=== PATIENT | female | born 1960 | race Caucasian/White ===

== ENCOUNTER 2022-12-14 08:58 | Inpatient (IN) | payer OTHER ==
[2022-12-14] MEDS ORDERED: Sodium Chloride 0.9% 10 ML Syringe FLUSH PRN (09:45)
[2022-12-14] MEDS ORDERED: fentaNYL 50 MCG/ML SDV IVPUSH ONE (09:46)
[2022-12-14] MEDS ORDERED: Ondansetron 4 MG/2 ML SDV IVPUSH ONE (09:46)
[2022-12-14 09:58] LABS: BASOPHILS ABSOLUTE AUTO 0.05 K/uL (0.00-0.10); BASOPHILS PERCENT AUTO 0.3 % (0.1-1.3); EOSINOPHILS ABSOLUTE AUTO 0.12 K/uL (0.00-0.40); EOSINOPHILS PERCENT AUTO 0.8 % (0.0-5.4); HEMATOCRIT 31.7 % (34.3-46.0); HEMOGLOBIN 10.5 g/dL (11.2-15.5); IMMATURE GRAN ABSOLUTE AUTO 0.09 K/uL (0.00-0.23); IMMATURE GRAN PERCENT AUTO 0.6 % (0.0-0.7); LYMPHOCYTES ABSOLUTE AUTO 1.47 K/uL (0.8-3.3); LYMPHOCYTES PERCENT AUTO 9.5 % (11.4-47.7); MEAN CORPUSCULAR HEMOGLOBIN 28.3 pg (31.6-35.5); MEAN CORPUSCULAR HGB CONC 33.1 g/dL (31.6-35.5); MEAN CORPUSCULAR VOLUME 85.4 fL (81.4-99.0); MONOCYTES ABSOLUTE AUTO 1.25 K/uL (0.20-0.90); MONOCYTES PERCENT AUTO 8.1 % (3.3-12.6); NEUTROPHILS ABSOLUTE AUTO 12.52 K/uL (1.0-7.6); NEUTROPHILS PERCENT AUTO 80.7 % (40.0-78.1); PLATELET COUNT,PLT 445 K/uL (130-375); RED BLOOD CELL COUNT 3.71 M/uL (3.77-5.24); WHITE BLOOD CELL COUNT,WBC 15.5 K/uL (3.2-11.0)
[2022-12-14] MEDS ORDERED: Sodium Chloride 0.9% 1,000 ML IV SCH (10:00)
[2022-12-14 10:19] LABS: A/G RATIO 0.6 (1.2-2.2); ALANINE AMINOTRANSFERASE,ALT 15 U/L (12-78); ALBUMIN 2.9 g/dL (3.4-5.0); ALKALINE PHOSPHATASE 96 U/L (46-116); ANION GAP 13.6 mmol/L (5.0-14.0); ASPARTATE AMNIOTRANSFERASE,AST 13 U/L (15-37); BILIRUBIN TOTAL 0.8 mg/dL (0.2-1.0); BLOOD UREA NITROGEN,BUN 10 mg/dL (7-18); C-REACTIVE PROTEIN 12.85 mg/dL (0.0-0.3); CALCIUM 8.7 mg/dL (8.5-10.1); CARBON DIOXIDE,CO2 26 mmol/L (21-32); CHLORIDE,CL 100 mmol/L (100-108); CREATININE 0.7 mg/dL (0.6-1.0); EST CRCL DRUG DOSING (CG) 79.01 mL/min; ESTIMATED GFR 98 mL/min (>60); GLUCOSE RANDOM 114 mg/dL (74-106); POTASSIUM,K 3.6 mmol/L (3.6-5.2); PROTEIN TOTAL,TP 7.4 g/dL (6.4-8.2); SODIUM,NA 136 mmol/L (140-148)
[2022-12-14] MEDS ORDERED: Sodium Chloride 0.9% 10 ML SDV FLUSH ONE (10:21)
[2022-12-14] MEDS ORDERED: Iopamidol 612 MG/ML 100 ML Bottle IV PRN (10:21)
[2022-12-14] MEDS ORDERED: Sodium Chloride 0.9% 100 ML IV SCH (10:30)
[2022-12-14 10:33] LABS: APPEARANCE,URINE CLOUDY (CLEAR); BILIRUBIN,URINE NEGATIVE (NEGATIVE); COLOR,URINE YELLOW (YELLOW); GLUCOSE,URINE NEGATIVE (NEGATIVE); KETONES,URINE NEGATIVE (NEGATIVE); LEUKOCYTE ESTERASE,URINE LARGE (NEGATIVE); NITRITE,URINE NEGATIVE (NEGATIVE); OCCULT BLOOD,URINE MODERATE (NEGATIVE); PROTEIN,URINE 30 mg/dL (NEGATIVE); UROBILINOGEN,URINE 0.2 EU/dL (0.2-1.0)
[2022-12-14 10:40] LABS: AMORPHOUS SEDIMENT,URINE NOT SEEN; BACTERIA,URINE MODERATE; EPITHELIAL CELLS,URINE FEW; MUCUS,URINE NOT SEEN; WBC,URINE 75-100 (0-5)
[2022-12-14] MEDS ORDERED: Piperacillin/Tazobactam 3.375 GM in Sodium Chloride 0.9% 50 ML IV SCH (11:45)
[2022-12-14] MEDS ORDERED: Sennosides/Docusate Sodium 50-8.6 MG Tab PO PRN (12:27)
[2022-12-14] MEDS ORDERED: Ondansetron 4 MG Tab.DIS PO PRN (12:27)
[2022-12-14] MEDS ORDERED: Magnesium Hydroxide 400 MG/5 ML Susp 30 ML Cup PO PRN (12:27)
[2022-12-14] MEDS ORDERED: [UNRECOGNIZED DRUG - OTHER] PO PRN (12:36)
[2022-12-14] MEDS ORDERED: BUTALBIT PO PRN (12:36)
[2022-12-14] MEDS ORDERED: ACETAMIN PO PRN (12:36)
[2022-12-14] MEDS ORDERED: CAFF PO PRN (12:36)
[2022-12-14] MEDS ORDERED: CODEINE PO PRN (12:36)
[2022-12-14] MEDS ORDERED: Fluticasone NASAL Spray 16 GM Bottle NASBOTH PRN (12:51)
[2022-12-14] MEDS ORDERED: Lidocaine 1% 20 ML MDV INJECT ONE (13:35)
[2022-12-14] MEDS: Lactated Ringers 1,000 ML IV SCH (14:18)
[2022-12-14] MEDS: HYDROmorphone 0.5 MG/0.5 ML Syringe IVPUSH PRN (14:19)
[2022-12-14] MEDS: Enoxaparin 40 MG/0.4 ML Syringe SUBCUT SCH (16:30)
[2022-12-14] MEDS: Pantoprazole 40 MG Vial IV SCH (16:30)
[2022-12-14] MEDS: Piperacillin/Tazobactam/Dext 3.375 GM in Premix Bag 1 BAG IV SCH (17:53)
[2022-12-14] MEDS: Acetaminophen 325 MG Tab PO PRN (19:39)
[2022-12-14] MEDS ORDERED: ORPHENADRINE 100 MG PO SCH (21:00)
[2022-12-14] MEDS: Melatonin 3 MG Tab PO SCH (21:33)
[2022-12-14] MEDS: oxyCODONE 5 MG Tab PO PRN (23:00)
[2022-12-15] MEDS: Piperacillin/Tazobactam/Dext 3.375 GM in Premix Bag 1 BAG IV SCH ×4 (00:26→17:21)
[2022-12-15] MEDS: Lactated Ringers 1,000 ML IV SCH ×3 (01:16→18:33)
[2022-12-15] MEDS: oxyCODONE 5 MG Tab PO PRN ×3 (04:30→18:31)
[2022-12-15 05:21] LABS: HEMATOCRIT 31.1 % (34.3-46.0); HEMOGLOBIN 10.2 g/dL (11.2-15.5); MEAN CORPUSCULAR HEMOGLOBIN 28.3 pg (31.6-35.5); MEAN CORPUSCULAR HGB CONC 32.8 g/dL (31.6-35.5); MEAN CORPUSCULAR VOLUME 86.1 fL (81.4-99.0); RED BLOOD CELL COUNT 3.61 M/uL (3.77-5.24); WHITE BLOOD CELL COUNT,WBC 12.9 K/uL (3.2-11.0)
[2022-12-15] MEDS: Ondansetron 4 MG/2 ML SDV IV PRN (08:08)
[2022-12-15] MEDS: Losartan 25 MG Tab PO SCH ×2 (10:06→22:25)
[2022-12-15] MEDS: Acetaminophen 325 MG Tab PO PRN (12:05)
[2022-12-15] MEDS: Pantoprazole 40 MG Vial IV SCH (13:59)
[2022-12-15] MEDS: Enoxaparin 40 MG/0.4 ML Syringe SUBCUT SCH (13:59)
[2022-12-15] MEDS: Magnesium Hydroxide 400 MG/5 ML Susp 30 ML Cup PO SCH (14:25)
[2022-12-15] MEDS: HYDROmorphone 0.5 MG/0.5 ML Syringe IVPUSH PRN (20:03)
[2022-12-15] MEDS: Melatonin 3 MG Tab PO SCH (22:25)
[2022-12-16] MEDS: Piperacillin/Tazobactam/Dext 3.375 GM in Premix Bag 1 BAG IV SCH ×4 (00:43→17:12)
[2022-12-16] MEDS: Magnesium Hydroxide 400 MG/5 ML Susp 30 ML Cup PO SCH ×2 (00:46→13:59)
[2022-12-16] MEDS: Acetaminophen 325 MG Tab PO PRN ×2 (02:30→11:18)
[2022-12-16] MEDS: Lactated Ringers 1,000 ML IV SCH ×2 (03:22→19:26)
[2022-12-16] MEDS: oxyCODONE 5 MG Tab PO PRN ×2 (05:34→10:19)
[2022-12-16] MEDS: HYDROmorphone 0.5 MG/0.5 ML Syringe IVPUSH PRN ×6 (06:26→22:18)
[2022-12-16] MEDS: Losartan 25 MG Tab PO SCH ×2 (08:00→20:53)
[2022-12-16] MEDS: Ondansetron 4 MG/2 ML SDV IV PRN ×2 (09:57→17:17)
[2022-12-16 11:39] LABS: HEMOGLOBIN 9.8 g/dL (11.2-15.5); MEAN CORPUSCULAR HEMOGLOBIN 28.5 pg (31.6-35.5); MEAN CORPUSCULAR HGB CONC 33.8 g/dL (31.6-35.5); MEAN CORPUSCULAR VOLUME 84.3 fL (81.4-99.0); RED BLOOD CELL COUNT 3.44 M/uL (3.77-5.24)
[2022-12-16] MEDS: Pantoprazole 40 MG Vial IV SCH (13:56)
[2022-12-16] MEDS: Enoxaparin 40 MG/0.4 ML Syringe SUBCUT SCH (13:59)
[2022-12-16] MEDS: Melatonin 3 MG Tab PO SCH (20:53)
[2022-12-17] MEDS: Piperacillin/Tazobactam/Dext 3.375 GM in Premix Bag 1 BAG IV SCH ×3 (00:48→11:37)
[2022-12-17] MEDS: Magnesium Hydroxide 400 MG/5 ML Susp 30 ML Cup PO SCH ×2 (00:50→14:49)
[2022-12-17] MEDS: HYDROmorphone 0.5 MG/0.5 ML Syringe IVPUSH PRN ×6 (00:58→16:29)
[2022-12-17] MEDS ORDERED: Iopamidol 612 MG/ML 30 ML SDV PO ONE (04:30)
[2022-12-17] MEDS ORDERED: Iohexol 647 MG/ML 50 ML SDV PO SCH (04:30)
[2022-12-17] MEDS: oxyCODONE 5 MG Tab PO PRN (04:33)
[2022-12-17] MEDS: Losartan 25 MG Tab PO SCH (08:26)
[2022-12-17 08:52] LABS: HEMATOCRIT 28.5 % (34.3-46.0); HEMOGLOBIN 9.5 g/dL (11.2-15.5); MEAN CORPUSCULAR HEMOGLOBIN 27.9 pg (31.6-35.5); MEAN CORPUSCULAR HGB CONC 33.3 g/dL (31.6-35.5); MEAN CORPUSCULAR VOLUME 83.8 fL (81.4-99.0); RED BLOOD CELL COUNT 3.4 M/uL (3.77-5.24); WHITE BLOOD CELL COUNT,WBC 16.8 K/uL (3.2-11.0)
[2022-12-17] MEDS: Lactated Ringers 1,000 ML IV SCH (09:51)
[2022-12-17 14:09] VITALS: BP 121/70; PULSE 101
[2022-12-17] MEDS: Enoxaparin 40 MG/0.4 ML Syringe SUBCUT SCH (14:49)
[2022-12-17] MEDS: Pantoprazole 40 MG Vial IV SCH (14:54)
== END 2022-12-17 16:35 | DRG 392 ==
LOC: JP.ED 08:58 → JP.MS 12:31
PROVIDERS: ADMIT Internal Medicine; ATTEND Internal Medicine
PROC: 0W9J30Z Drainage of Pelvic Cavity with Drainage Device, Percutaneous Approach (ICD-10-PCS; principal; 2022-12-14)
DX: K57.20 Diverticulitis of large intestine with perforation and abscess without bleeding (principal); K57.32 Diverticulitis of large intestine without perforation or abscess without bleeding; N39.0 Urinary tract infection, site not specified; H54.7 Unspecified visual loss; Z20.822 Contact with and (suspected) exposure to COVID-19; B96.20 Unspecified Escherichia coli [E. coli] as the cause of diseases classified elsewhere; I10 Essential (primary) hypertension; Z88.5 Allergy status to narcotic agent; E03.9 Hypothyroidism, unspecified; Z79.899 Other long term (current) drug therapy; Z95.0 Presence of cardiac pacemaker
CPT/HCPCS: 36415; 74177 ×2; 80053; 81001; 85025; 86140; 87088; 87635; 96361; 96374; 96375; 99285; J2405; J2543; J3010; J3490 ×4; J7030; Q9967; 49405; 49405-26; 74176; 74176-26; 85027; 87070; 87086; 87186; 87205; 99222; 99232; 99239; A9270-GY; C1729; C1769; C9113; J1170; J1650; J7120; Q0162; U0002

== ENCOUNTER 2022-12-24 17:28 | Inpatient (IN) | payer OTHER ==
[2022-12-24] MEDS ORDERED: Sodium Chloride 0.9% 10 ML Syringe FLUSH PRN (17:54)
[2022-12-24] MEDS ORDERED: Naloxone 0.4 MG/ML SDV IVPUSH PRN (18:02)
[2022-12-24] MEDS ORDERED: HYDROmorphone 0.5 MG/0.5 ML Syringe IVPUSH ONE (18:02)
[2022-12-24] MEDS: Ondansetron 4 MG/2 ML SDV IVPUSH ONE (18:07)
[2022-12-24 18:10] LABS: BASOPHILS ABSOLUTE AUTO 0.05 K/uL (0.00-0.10); BASOPHILS PERCENT AUTO 0.3 % (0.1-1.3); EOSINOPHILS ABSOLUTE AUTO 0.11 K/uL (0.00-0.40); EOSINOPHILS PERCENT AUTO 0.6 % (0.0-5.4); HEMATOCRIT 32.5 % (34.3-46.0); HEMOGLOBIN 10.6 g/dL (11.2-15.5); IMMATURE GRAN ABSOLUTE AUTO 0.16 K/uL (0.00-0.23); IMMATURE GRAN PERCENT AUTO 0.8 % (0.0-0.7); LYMPHOCYTES ABSOLUTE AUTO 1.33 K/uL (0.8-3.3); LYMPHOCYTES PERCENT AUTO 6.7 % (11.4-47.7); MEAN CORPUSCULAR HEMOGLOBIN 27.7 pg (31.6-35.5); MEAN CORPUSCULAR HGB CONC 32.6 g/dL (31.6-35.5); MEAN CORPUSCULAR VOLUME 84.9 fL (81.4-99.0); MONOCYTES ABSOLUTE AUTO 1.47 K/uL (0.20-0.90); MONOCYTES PERCENT AUTO 7.4 % (3.3-12.6); NEUTROPHILS ABSOLUTE AUTO 16.64 K/uL (1.0-7.6); NEUTROPHILS PERCENT AUTO 84.2 % (40.0-78.1); PLATELET COUNT,PLT 553 K/uL (130-375); RED BLOOD CELL COUNT 3.83 M/uL (3.77-5.24); WHITE BLOOD CELL COUNT,WBC 19.8 K/uL (3.2-11.0)
[2022-12-24] MEDS ORDERED: Sodium Chloride 0.9% 1,000 ML IV ONE (18:11)
[2022-12-24 18:14] LABS: LACTIC ACID 1.9 mmol/L (0.4-2.0)
[2022-12-24] MEDS ORDERED: Sodium Chloride 0.9% 50 ML IV SCH (18:30)
[2022-12-24] MEDS ORDERED: Iopamidol 612 MG/ML 100 ML Bottle IV SCH (18:30)
[2022-12-24 18:34] LABS: A/G RATIO 0.6 (1.2-2.2); ALANINE AMINOTRANSFERASE,ALT 20 U/L (12-78); ALBUMIN 2.7 g/dL (3.4-5.0); ALKALINE PHOSPHATASE 119 U/L (46-116); ASPARTATE AMNIOTRANSFERASE,AST 14 U/L (15-37); BILIRUBIN TOTAL 0.6 mg/dL (0.2-1.0); BLOOD UREA NITROGEN,BUN 12 mg/dL (7-18); CALCIUM 8.8 mg/dL (8.5-10.1); CARBON DIOXIDE,CO2 24 mmol/L (21-32); CHLORIDE,CL 98 mmol/L (100-108); CREATININE 0.8 mg/dL (0.6-1.0); EST CRCL DRUG DOSING (CG) 69.13 mL/min; ESTIMATED GFR 84 mL/min (>60); GLUCOSE RANDOM 127 mg/dL (74-106); POTASSIUM,K 3.6 mmol/L (3.6-5.2); PROTEIN TOTAL,TP 7.6 g/dL (6.4-8.2); SODIUM,NA 134 mmol/L (140-148)
[2022-12-24 18:35] LABS: ANION GAP 15.6 mmol/L (5.0-14.0)
[2022-12-24] MEDS ORDERED: Piperacillin/Tazobactam 4.5 GM in Sodium Chloride 0.9% 50 ML IV ONE (19:25)
[2022-12-24] MEDS ORDERED: HYDROmorphone 0.5 MG/0.5 ML Syringe IVPUSH PRN (20:18)
[2022-12-24] MEDS ORDERED: Ondansetron 4 MG/2 ML SDV IVPUSH PRN (20:26)
[2022-12-24] MEDS: Acetaminophen 1,000 MG in Premix Bag 1 BAG IV PRN (21:26)
[2022-12-24] MEDS: Sodium Chloride 0.9% 1,000 ML IV SCH (22:49)
[2022-12-25] MEDS ORDERED: Sodium Chloride 0.9% 50 ML ONE (03:51)
[2022-12-25] MEDS ORDERED: Piperacillin/Tazobactam 4.5 GM in Sodium Chloride 0.9% 50 ML IV SCH (04:00)
[2022-12-25 07:01] LABS: BASOPHILS ABSOLUTE AUTO 0.04 K/uL (0.00-0.10); BASOPHILS PERCENT AUTO 0.2 % (0.1-1.3); EOSINOPHILS PERCENT AUTO 0.6 % (0.0-5.4); HEMATOCRIT 28.5 % (34.3-46.0); HEMOGLOBIN 9.3 g/dL (11.2-15.5); IMMATURE GRAN PERCENT AUTO 0.6 % (0.0-0.7); LYMPHOCYTES ABSOLUTE AUTO 1.38 K/uL (0.8-3.3); LYMPHOCYTES PERCENT AUTO 8.3 % (11.4-47.7); MEAN CORPUSCULAR HEMOGLOBIN 27.8 pg (31.6-35.5); MEAN CORPUSCULAR HGB CONC 32.6 g/dL (31.6-35.5); MEAN CORPUSCULAR VOLUME 85.3 fL (81.4-99.0); MONOCYTES ABSOLUTE AUTO 1.26 K/uL (0.20-0.90); MONOCYTES PERCENT AUTO 7.6 % (3.3-12.6); NEUTROPHILS ABSOLUTE AUTO 13.79 K/uL (1.0-7.6); NEUTROPHILS PERCENT AUTO 82.7 % (40.0-78.1); PLATELET COUNT,PLT 418 K/uL (130-375); RED BLOOD CELL COUNT 3.34 M/uL (3.77-5.24); WHITE BLOOD CELL COUNT,WBC 16.7 K/uL (3.2-11.0)
[2022-12-25] MEDS: Sodium Chloride 0.9% 1,000 ML IV SCH (07:09)
[2022-12-25 07:18] LABS: C-REACTIVE PROTEIN 15.04 mg/dL (0.0-0.3); CREATININE 0.8 mg/dL (0.6-1.0); EST CRCL DRUG DOSING (CG) 69.13 mL/min; POTASSIUM,K 3.7 mmol/L (3.6-5.2)
[2022-12-25 07:20] LABS: ANION GAP 13.7 mmol/L (5.0-14.0)
[2022-12-25] MEDS: Acetaminophen 1,000 MG in Premix Bag 1 BAG IV PRN (07:24)
[2022-12-25] MEDS ORDERED: HYDROmorphone 0.5 MG/0.5 ML Syringe IVPUSH PRN (11:46)
[2022-12-25] MEDS ORDERED: Naloxone 0.4 MG/ML SDV IVPUSH PRN (11:46)
[2022-12-25] MEDS ORDERED: Sodium Chloride 0.9% 10 ML Syringe FLUSH PRN (11:46)
[2022-12-25] MEDS ORDERED: Fluticasone NASAL Spray 16 GM Bottle NASBOTH PRN (11:55)
[2022-12-25] MEDS ORDERED: Piperacillin/Tazobactam/Dext 4.5 GM in Premix Bag 1 BAG IV SCH (12:00)
[2022-12-25] MEDS ORDERED: HYDROmorphone/Normal Saline 6 MG/30 ML PCA Vial IV PRN (12:27)
[2022-12-25] MEDS ORDERED: Naloxone 0.4 MG/ML SDV IV PRN (13:00)
[2022-12-25] MEDS: Losartan 25 MG Tab PO SCH ×2 (13:44→20:38)
[2022-12-25] MEDS: Piperacillin/Tazobactam/Dext 3.375 GM in Premix Bag 1 BAG IV SCH ×3 (14:03→23:33)
[2022-12-25] MEDS: Acetaminophen 325 MG Tab PO PRN ×2 (14:07→20:38)
[2022-12-25] MEDS: Lactated Ringers 1,000 ML IV SCH ×2 (15:32→23:43)
[2022-12-25] MEDS: Ondansetron 4 MG/2 ML SDV IV PRN ×2 (17:37→23:32)
[2022-12-25] MEDS: HYDROmorphone 0.5 MG/0.5 ML Syringe IVPUSH PRN ×2 (17:37→23:33)
[2022-12-25] MEDS ORDERED: Ondansetron 4 MG/2 ML SDV IVPUSH ONE (20:29)
[2022-12-25] MEDS ORDERED: Metoclopramide 10 MG/2 ML SDV IVPUSH PRN (20:30)
[2022-12-25] MEDS: Ondansetron 4 MG/2 ML SDV IVPUSH ONE (20:40)
[2022-12-26] MEDS: Acetaminophen 325 MG Tab PO PRN (04:24)
[2022-12-26] MEDS: Ondansetron 4 MG/2 ML SDV IV PRN (04:43)
[2022-12-26 04:53] LABS: BASOPHILS ABSOLUTE AUTO 0.03 K/uL (0.00-0.10); BASOPHILS PERCENT AUTO 0.2 % (0.1-1.3); EOSINOPHILS ABSOLUTE AUTO 0.17 K/uL (0.00-0.40); EOSINOPHILS PERCENT AUTO 1.3 % (0.0-5.4); HEMATOCRIT 30.6 % (34.3-46.0); HEMOGLOBIN 9.8 g/dL (11.2-15.5); IMMATURE GRAN ABSOLUTE AUTO 0.12 K/uL (0.00-0.23); IMMATURE GRAN PERCENT AUTO 0.9 % (0.0-0.7); LYMPHOCYTES PERCENT AUTO 11.5 % (11.4-47.7); MEAN CORPUSCULAR HEMOGLOBIN 27.3 pg (31.6-35.5); MEAN CORPUSCULAR VOLUME 85.2 fL (81.4-99.0); MONOCYTES PERCENT AUTO 7.7 % (3.3-12.6); NEUTROPHILS ABSOLUTE AUTO 10.17 K/uL (1.0-7.6); NEUTROPHILS PERCENT AUTO 78.4 % (40.0-78.1); PLATELET COUNT,PLT 489 K/uL (130-375); RED BLOOD CELL COUNT 3.59 M/uL (3.77-5.24)
[2022-12-26] MEDS ORDERED: Naloxone 0.4 MG/ML SDV IV PRN ×2 (05:00→10:00)
[2022-12-26] MEDS ORDERED: HYDROmorphone/Normal Saline 6 MG/30 ML PCA Vial IV PRN (05:00)
[2022-12-26 05:27] LABS: A/G RATIO 0.5 (1.2-2.2); ALANINE AMINOTRANSFERASE,ALT 16 U/L (12-78); ALBUMIN 2.3 g/dL (3.4-5.0); ALKALINE PHOSPHATASE 110 U/L (46-116); ASPARTATE AMNIOTRANSFERASE,AST 12 U/L (15-37); BILIRUBIN TOTAL 0.7 mg/dL (0.2-1.0); BLOOD UREA NITROGEN,BUN 5 mg/dL (7-18); CALCIUM 8.4 mg/dL (8.5-10.1); CARBON DIOXIDE,CO2 26 mmol/L (21-32); CHLORIDE,CL 98 mmol/L (100-108); CREATININE 0.8 mg/dL (0.6-1.0); EST CRCL DRUG DOSING (CG) 69.13 mL/min; ESTIMATED GFR 84 mL/min (>60); GLUCOSE RANDOM 109 mg/dL (74-106); MAGNESIUM 1.9 mg/dL (1.8-2.4); PHOSPHORUS 3.4 mg/dL (2.5-4.9); POTASSIUM,K 3.2 mmol/L (3.6-5.2); PRO B-TYPE NATRIUR PEPT,BNPPRO 545 pg/mL (5-125); SODIUM,NA 135 mmol/L (140-148)
[2022-12-26] MEDS: Piperacillin/Tazobactam/Dext 3.375 GM in Premix Bag 1 BAG IV SCH ×3 (05:27→17:31)
[2022-12-26 05:32] LABS: ANION GAP 14.2 mmol/L (5.0-14.0)
[2022-12-26] MEDS ORDERED: Lidocaine 1% with EPINEPHrine 1:100,000 50 ML MDV ONE (06:40)
[2022-12-26] MEDS ORDERED: Meropenem 500 MG SDV ONE ×2 (06:40→10:43)
[2022-12-26] MEDS ORDERED: Bupivacaine 0.5% 50 ML MDV ONE (06:40)
[2022-12-26] MEDS ORDERED: Succinylcholine 200 MG/10 ML MDV ONE (07:00)
[2022-12-26] MEDS ORDERED: Propofol 200 MG/20 ML SDV ONE (07:00)
[2022-12-26] MEDS ORDERED: Ondansetron 4 MG/2 ML SDV ONE (07:00)
[2022-12-26] MEDS ORDERED: Dexamethasone 4 MG/ML SDV ONE (07:00)
[2022-12-26] MEDS ORDERED: Neostigmine Methylsulfate 1 MG/ML 5 ML Syringe ONE (07:00)
[2022-12-26] MEDS ORDERED: Rocuronium 50 MG/5 ML Vial ONE ×2 (07:00→10:40)
[2022-12-26] MEDS ORDERED: Glycopyrrolate 0.2 MG/ML 5 ML MDV ONE (07:00)
[2022-12-26] MEDS ORDERED: fentaNYL 250 MCG/5 ML SDV ONE ×2 (07:01→09:21)
[2022-12-26] MEDS ORDERED: Ketamine 500 MG/5 ML MDV IV SCH (08:00)
[2022-12-26] MEDS ORDERED: Ropivacaine 36 ML, dexAMETHasone 8 MG, EPINEPHrine 0.4 MG, Sodium Chloride 0.9% 41.6 ML NERVRT SCH ×4 (08:00)
[2022-12-26] MEDS ORDERED: Ketamine 18 MG in Sodium Chloride 0.9% 19.82 ML IV SCH (08:00)
[2022-12-26] MEDS ORDERED: Potassium Chloride 20 MEQ Tab.ER PO ONE ×2 (08:15→13:30)
[2022-12-26] MEDS ORDERED: Scopolamine 1.5 MG Transdermal Patch ONE (09:16)
[2022-12-26] MEDS ORDERED: droPERidol 5 MG/2 ML SDV ONE (09:18)
[2022-12-26] MEDS ORDERED: Labetalol 20 MG/4 ML Syringe ONE (09:25)
[2022-12-26] MEDS ORDERED: Linezolid 600 MG/300 ML Premix Bag IRR ONE (09:37)
[2022-12-26] MEDS: fentaNYL/Normal Saline 600 MCG/30 ML PCA Vial IV PRN ×2 (09:51→22:49)
[2022-12-26] MEDS ORDERED: fentaNYL 100 MCG/2 ML SDV ONE (11:28)
[2022-12-26] MEDS: Losartan 25 MG Tab PO SCH ×2 (13:13→21:36)
[2022-12-26] MEDS: Acetaminophen 500 MG Tab PO SCH ×2 (13:27→21:41)
[2022-12-26] MEDS: hydrOXYzine HCl 50 MG/ML SDV IM PRN ×2 (13:34→19:34)
[2022-12-26] MEDS: Dextrose 5%-Lactated Ringers 1,000 ML IV SCH (13:41)
[2022-12-26] MEDS ORDERED: diphenhydrAMINE 50 MG/ML SDV IVPUSH PRN (14:00)
[2022-12-26] MEDS ORDERED: Pantoprazole 40 MG Vial IVPUSH SCH (14:00)
[2022-12-26] MEDS ORDERED: Labetalol 20 MG/4 ML Syringe IVPUSH PRN (14:00)
[2022-12-26] MEDS ORDERED: Acetaminophen 500 MG Tab PO PRN (14:00)
[2022-12-26] MEDS: Cyclobenzaprine 10 MG Tab PO PRN ×2 (14:38→22:38)
[2022-12-26] MEDS ORDERED: MVI, Adult with Vitamin K 10 ML, Thiamine 200 MG, Zinc/Copper/Manganese/Selenium 1 ML i... IV SCH ×4 (16:00)
[2022-12-26] MEDS: Ondansetron 4 MG/2 ML SDV IVPUSH PRN (17:30)
[2022-12-26] MEDS: Metoclopramide 10 MG/2 ML SDV IVPUSH PRN (20:18)
[2022-12-27] MEDS: Dextrose 5%-Lactated Ringers 1,000 ML IV SCH ×2 (00:21→06:24)
[2022-12-27] MEDS: Piperacillin/Tazobactam/Dext 3.375 GM in Premix Bag 1 BAG IV SCH ×4 (00:30→17:54)
[2022-12-27] MEDS: Calcium Carbonate 500 MG Tab.Chew PO PRN ×4 (01:17→16:45)
[2022-12-27] MEDS: Ondansetron 4 MG/2 ML SDV IVPUSH PRN ×3 (03:11→18:25)
[2022-12-27] MEDS ORDERED: Iopamidol 612 MG/ML 30 ML SDV PO ONE (04:24)
[2022-12-27] MEDS: Metoclopramide 10 MG/2 ML SDV IVPUSH PRN (04:33)
[2022-12-27 05:46] LABS: BASOPHILS ABSOLUTE AUTO 0.03 K/uL (0.00-0.10); BASOPHILS PERCENT AUTO 0.2 % (0.1-1.3); HEMOGLOBIN 11.3 g/dL (11.2-15.5); IMMATURE GRAN ABSOLUTE AUTO 0.18 K/uL (0.00-0.23); IMMATURE GRAN PERCENT AUTO 0.9 % (0.0-0.7); LYMPHOCYTES ABSOLUTE AUTO 1.13 K/uL (0.8-3.3); LYMPHOCYTES PERCENT AUTO 5.8 % (11.4-47.7); MEAN CORPUSCULAR HEMOGLOBIN 28.5 pg (31.6-35.5); MEAN CORPUSCULAR HGB CONC 34.2 g/dL (31.6-35.5); MEAN CORPUSCULAR VOLUME 83.1 fL (81.4-99.0); MONOCYTES PERCENT AUTO 9.2 % (3.3-12.6); NEUTROPHILS ABSOLUTE AUTO 16.37 K/uL (1.0-7.6); NEUTROPHILS PERCENT AUTO 83.9 % (40.0-78.1); PLATELET COUNT,PLT 495 K/uL (130-375); RED BLOOD CELL COUNT 3.97 M/uL (3.77-5.24); WHITE BLOOD CELL COUNT,WBC 19.5 K/uL (3.2-11.0)
[2022-12-27 06:17] LABS: A/G RATIO 0.4 (1.2-2.2); ALANINE AMINOTRANSFERASE,ALT 16 U/L (12-78); ALBUMIN 1.8 g/dL (3.4-5.0); ALKALINE PHOSPHATASE 83 U/L (46-116); ASPARTATE AMNIOTRANSFERASE,AST 11 U/L (15-37); BILIRUBIN TOTAL 0.8 mg/dL (0.2-1.0); BLOOD UREA NITROGEN,BUN 10 mg/dL (7-18); CALCIUM 8.3 mg/dL (8.5-10.1); CARBON DIOXIDE,CO2 27 mmol/L (21-32); CHLORIDE,CL 96 mmol/L (100-108); CREATININE 0.9 mg/dL (0.6-1.0); EST CRCL DRUG DOSING (CG) 61.45 mL/min; ESTIMATED GFR 73 mL/min (>60); FERRITIN 689 ng/ml (8-388); GLUCOSE RANDOM 256 mg/dL (74-106); MAGNESIUM 1.8 mg/dL (1.8-2.4); PHOSPHORUS 2.4 mg/dL (2.5-4.9); POTASSIUM,K 3.7 mmol/L (3.6-5.2); PRO B-TYPE NATRIUR PEPT,BNPPRO 226 pg/mL (5-125); SODIUM,NA 133 mmol/L (140-148)
[2022-12-27 06:33] LABS: ANION GAP 13.7 mmol/L (5.0-14.0)
[2022-12-27] MEDS: Acetaminophen 500 MG Tab PO SCH (07:32)
[2022-12-27] MEDS: Docusate Sodium 100 MG Cap PO SCH ×2 (09:18→21:47)
[2022-12-27] MEDS: Bisacodyl 5 MG Tab PO SCH ×2 (09:18→21:47)
[2022-12-27] MEDS: Losartan 25 MG Tab PO SCH ×2 (09:19→21:49)
[2022-12-27] MEDS: Celecoxib 200 MG Cap PO SCH ×2 (09:19→21:47)
[2022-12-27] MEDS: SCOPOLAMINE PATCH CHECK TOP SCH (09:30)
[2022-12-27] MEDS: Metoclopramide 10 MG/2 ML SDV IVPUSH SCH ×3 (10:01→21:48)
[2022-12-27] MEDS: Azithromycin 125 MG in Sodium Chloride 0.9% 100 ML IV SCH ×2 (10:11→21:43)
[2022-12-27] MEDS: Pantoprazole 40 MG Vial IVPUSH SCH ×2 (10:12→21:48)
[2022-12-27] MEDS: Cyclobenzaprine 10 MG Tab PO PRN ×2 (10:51→18:19)
[2022-12-27] MEDS ORDERED: hydrOXYzine HCL 100 MG/2 ML SDV IM PRN (11:15)
[2022-12-27] MEDS: Potassium Phosphates 15 MMOLE in Sodium Chloride 0.9% 250 ML IV SCH ×2 (11:37→14:47)
[2022-12-27] MEDS ORDERED: MVI, Adult with Vitamin K 10 ML, Thiamine 200 MG, Zinc/Copper/Manganese/Selenium 1 ML i... IV SCH ×4 (16:00)
[2022-12-27] MEDS: fentaNYL/Normal Saline 600 MCG/30 ML PCA Vial IV PRN (18:26)
[2022-12-28] MEDS: Calcium Carbonate 500 MG Tab.Chew PO PRN (02:04)
[2022-12-28] MEDS: Piperacillin/Tazobactam/Dext 3.375 GM in Premix Bag 1 BAG IV SCH ×2 (02:16→05:12)
[2022-12-28 04:42] LABS: BASOPHILS ABSOLUTE AUTO 0.03 K/uL (0.00-0.10); BASOPHILS PERCENT AUTO 0.2 % (0.1-1.3); EOSINOPHILS PERCENT AUTO 0.6 % (0.0-5.4); HEMATOCRIT 27.4 % (34.3-46.0); HEMOGLOBIN 9.2 g/dL (11.2-15.5); IMMATURE GRAN ABSOLUTE AUTO 0.11 K/uL (0.00-0.23); IMMATURE GRAN PERCENT AUTO 0.6 % (0.0-0.7); LYMPHOCYTES ABSOLUTE AUTO 1.63 K/uL (0.8-3.3); LYMPHOCYTES PERCENT AUTO 9.3 % (11.4-47.7); MEAN CORPUSCULAR HEMOGLOBIN 28.5 pg (31.6-35.5); MEAN CORPUSCULAR HGB CONC 33.6 g/dL (31.6-35.5); MEAN CORPUSCULAR VOLUME 84.8 fL (81.4-99.0); MONOCYTES ABSOLUTE AUTO 1.14 K/uL (0.20-0.90); MONOCYTES PERCENT AUTO 6.5 % (3.3-12.6); NEUTROPHILS ABSOLUTE AUTO 14.45 K/uL (1.0-7.6); NEUTROPHILS PERCENT AUTO 82.8 % (40.0-78.1); PLATELET COUNT,PLT 449 K/uL (130-375); RED BLOOD CELL COUNT 3.23 M/uL (3.77-5.24); WHITE BLOOD CELL COUNT,WBC 17.5 K/uL (3.2-11.0)
[2022-12-28 05:01] LABS: A/G RATIO 0.4 (1.2-2.2); ALANINE AMINOTRANSFERASE,ALT 11 U/L (12-78); ALBUMIN 1.6 g/dL (3.4-5.0); ALKALINE PHOSPHATASE 89 U/L (46-116); ASPARTATE AMNIOTRANSFERASE,AST 11 U/L (15-37); BILIRUBIN TOTAL 0.5 mg/dL (0.2-1.0); BLOOD UREA NITROGEN,BUN 9 mg/dL (7-18); CALCIUM 8.3 mg/dL (8.5-10.1); CARBON DIOXIDE,CO2 26 mmol/L (21-32); CHLORIDE,CL 101 mmol/L (100-108); CREATININE 0.8 mg/dL (0.6-1.0); EST CRCL DRUG DOSING (CG) 69.13 mL/min; ESTIMATED GFR 84 mL/min (>60); GLUCOSE RANDOM 128 mg/dL (74-106); MAGNESIUM 1.7 mg/dL (1.8-2.4); PHOSPHORUS 3.5 mg/dL (2.5-4.9); POTASSIUM,K 3.9 mmol/L (3.6-5.2); PROTEIN TOTAL,TP 5.5 g/dL (6.4-8.2); SODIUM,NA 135 mmol/L (140-148)
[2022-12-28] MEDS: Metoclopramide 10 MG/2 ML SDV IVPUSH SCH ×4 (05:12→23:34)
[2022-12-28] MEDS: Dextrose 5%-Lactated Ringers 1,000 ML IV SCH ×2 (05:12→21:26)
[2022-12-28 05:16] LABS: ANION GAP 11.9 mmol/L (5.0-14.0)
[2022-12-28] MEDS: Ondansetron 4 MG/2 ML SDV IVPUSH PRN (05:28)
[2022-12-28] MEDS ORDERED: fentaNYL 50 MCG/ML SDV ONE (06:53)
[2022-12-28] MEDS ORDERED: Midazolam 1 MG/ML 2 ML SDV ONE (06:53)
[2022-12-28] MEDS ORDERED: Propofol 200 MG/20 ML SDV ONE ×2 (06:53→07:49)
[2022-12-28] MEDS ORDERED: Ketamine 18 MG in Sodium Chloride 0.9% 19.82 ML IV SCH (07:15)
[2022-12-28] MEDS ORDERED: Ropivacaine 36 ML, dexAMETHasone 8 MG, EPINEPHrine 0.4 MG, Sodium Chloride 0.9% 41.6 ML NERVRT SCH ×4 (07:15)
[2022-12-28] MEDS ORDERED: Ketamine 500 MG/5 ML MDV IV SCH (07:15)
[2022-12-28] MEDS ORDERED: Ondansetron 4 MG/2 ML SDV ONE (07:21)
[2022-12-28] MEDS ORDERED: Dexamethasone 4 MG/ML SDV ONE (07:21)
[2022-12-28] MEDS: Bupivacaine 0.5% 50 ML MDV ONE ×2 (07:37→07:49)
[2022-12-28] MEDS: Lidocaine 1% with EPINEPHrine 1:100,000 50 ML MDV ONE ×2 (07:37→07:49)
[2022-12-28] MEDS: Meropenem 500 MG SDV ONE ×2 (07:38→07:51)
[2022-12-28] MEDS ORDERED: Cyanocobalamin (Vitamin B12) 1,000 MCG/ML SDV IM ONE (09:00)
[2022-12-28] MEDS: Meropenem 500 MG in Sodium Chloride 0.9% 50 ML IV SCH ×3 (10:20→21:24)
[2022-12-28] MEDS: Celecoxib 200 MG Cap PO SCH ×2 (10:23→20:48)
[2022-12-28] MEDS: Docusate Sodium 100 MG Cap PO SCH ×2 (10:23→20:49)
[2022-12-28] MEDS: Bisacodyl 5 MG Tab PO SCH ×2 (10:23→20:49)
[2022-12-28] MEDS: Losartan 25 MG Tab PO SCH ×2 (10:24→20:49)
[2022-12-28] MEDS: Pantoprazole 40 MG Vial IVPUSH SCH ×2 (10:24→23:40)
[2022-12-28] MEDS: SCOPOLAMINE PATCH CHECK TOP SCH (10:29)
[2022-12-28] MEDS: Azithromycin 125 MG in Sodium Chloride 0.9% 100 ML IV SCH ×2 (10:50→23:48)
[2022-12-29] MEDS: Metoclopramide 10 MG/2 ML SDV IVPUSH SCH ×4 (04:50→23:35)
[2022-12-29] MEDS: Meropenem 500 MG in Sodium Chloride 0.9% 50 ML IV SCH ×4 (04:51→22:58)
[2022-12-29] MEDS: traMADol 50 MG Tab PO PRN ×3 (08:32→22:13)
[2022-12-29] MEDS: Losartan 25 MG Tab PO SCH ×2 (08:33→22:04)
[2022-12-29] MEDS: Celecoxib 200 MG Cap PO SCH ×2 (08:33→22:04)
[2022-12-29] MEDS: Docusate Sodium 100 MG Cap PO SCH ×2 (08:34→22:04)
[2022-12-29] MEDS: Bisacodyl 5 MG Tab PO SCH ×2 (08:34→22:07)
[2022-12-29] MEDS ORDERED: Benzocaine/Cetylpyridinium/Menthol Lozenge MUCMEM PRN (10:43)
[2022-12-29] MEDS: Dextrose 5%-Lactated Ringers 1,000 ML IV SCH ×2 (10:49→23:56)
[2022-12-29] MEDS: Azithromycin 125 MG in Sodium Chloride 0.9% 100 ML IV SCH ×2 (10:51→23:35)
[2022-12-29] MEDS: Pantoprazole 40 MG Tab.CR PO SCH ×2 (11:36→15:54)
[2022-12-29] MEDS: Cyclobenzaprine 10 MG Tab PO PRN (22:54)
[2022-12-30] MEDS: oxyCODONE 5 MG Tab PO PRN ×3 (00:10→07:44)
[2022-12-30] MEDS: Metoclopramide 10 MG/2 ML SDV IVPUSH SCH (04:02)
[2022-12-30] MEDS: Meropenem 500 MG in Sodium Chloride 0.9% 50 ML IV SCH ×2 (04:03→09:18)
[2022-12-30] MEDS: Pantoprazole 40 MG Tab.CR PO SCH (07:36)
[2022-12-30 07:42] VITALS: BP 149/83; PULSE 109
[2022-12-30] MEDS: Celecoxib 200 MG Cap PO SCH (09:17)
[2022-12-30] MEDS: Docusate Sodium 100 MG Cap PO SCH (09:17)
[2022-12-30] MEDS: Losartan 25 MG Tab PO SCH (09:18)
[2022-12-30] MEDS: Bisacodyl 5 MG Tab PO SCH (09:18)
[2022-12-30] MEDS: Azithromycin 125 MG in Sodium Chloride 0.9% 100 ML IV SCH (10:12)
== END 2022-12-30 12:10 | disposition home or self-care (01) | DRG 330 ==
LOC: JP.ED 17:28 → JP.MS 12-25 08:12
PROVIDERS: ADMIT Surgery; ATTEND Surgery
PROC: 0D1N0ZP Bypass Sigmoid Colon to Rectum, Open Approach (ICD-10-PCS; 2022-12-26)
PROC: 0D9N00Z Drainage of Sigmoid Colon with Drainage Device, Open Approach (ICD-10-PCS; 2022-12-26)
PROC: 0TQB0ZZ Repair Bladder, Open Approach (ICD-10-PCS; 2022-12-26)
PROC: 0UB10ZZ Excision of Left Ovary, Open Approach (ICD-10-PCS; 2022-12-26)
PROC: 0UB60ZZ Excision of Left Fallopian Tube, Open Approach (ICD-10-PCS; 2022-12-26)
PROC: 0DBN0ZZ Excision of Sigmoid Colon, Open Approach (ICD-10-PCS; 2022-12-26)
PROC: 0WQF0ZZ Repair Abdominal Wall, Open Approach (ICD-10-PCS; principal; 2022-12-28)
DX: K57.20 Diverticulitis of large intestine with perforation and abscess without bleeding (principal); N32.1 Vesicointestinal fistula; N39.0 Urinary tract infection, site not specified; N85.8 Other specified noninflammatory disorders of uterus; N83.8 Other noninflammatory disorders of ovary, fallopian tube and broad ligament; I10 Essential (primary) hypertension; E03.9 Hypothyroidism, unspecified; G43.909 Migraine, unspecified, not intractable, without status migrainosus; Z95.0 Presence of cardiac pacemaker; Z88.5 Allergy status to narcotic agent; Z98.51 Tubal ligation status; Z90.710 Acquired absence of both cervix and uterus; Z79.899 Other long term (current) drug therapy; Z98.890 Other specified postprocedural states
CPT/HCPCS: 36415; 36430; 74177; 74240; 74240-26; 80048; 80053; 82728; 83605; 83735; 83880; 84100; 84145; 84443; 85025; 86140; 86850; 86900; 86901; 86920; 86922; 87040; 87070; 87075; 87077; 87186; 87205; 88305; 88307; 93005; 93010; 96361; 96365; 96366; 96367; 96375; 96376; 99222; 99285; 99285-25; A9270-GY; C9113; J0131; J0171; J0330; J0456; J1100; J1170; J1790; J2020; J2185; J2250; J2405; J2543; J2704; J2710; J2765; J2795; J3010; J3410; J3411; J3420; J3490; J7030; J7050; J7120; J7121; P9016; Q9967; U0002

== ENCOUNTER 2023-10-04 06:56 | Day surgery (SDC) | payer OTHER ==
[2023-10-04 07:17] LABS: HEMOGLOBIN 13.8 g/dL (11.2-15.5); MEAN CORPUSCULAR HEMOGLOBIN 28.6 pg (31.6-35.5); MEAN CORPUSCULAR HGB CONC 32.9 g/dL (31.6-35.5); MEAN CORPUSCULAR VOLUME 87.1 fL (81.4-99.0); RED BLOOD CELL COUNT 4.82 M/uL (3.77-5.24); WHITE BLOOD CELL COUNT,WBC 11.4 K/uL (3.2-11.0)
[2023-10-04] MEDS ORDERED: Midazolam 1 MG/ML 2 ML SDV ONE (07:19)
[2023-10-04] MEDS ORDERED: Propofol 200 MG/20 ML SDV ONE ×2 (07:19→08:49)
[2023-10-04] MEDS ORDERED: fentaNYL 50 MCG/ML SDV ONE (07:20)
[2023-10-04] MEDS ORDERED: Ondansetron 4 MG/2 ML SDV ONE (07:20)
[2023-10-04 07:33] LABS: PROTHROMBIN TIME 10.2 sec (9.2-10.6)
[2023-10-04 07:43] LABS: A/G RATIO 0.9 (1.2-2.2); ALANINE AMINOTRANSFERASE,ALT 28 U/L (12-78); ALBUMIN 3.8 g/dL (3.4-5.0); ALKALINE PHOSPHATASE 92 U/L (46-116); ANION GAP 11.3 mmol/L (5.0-14.0); ASPARTATE AMNIOTRANSFERASE,AST 18 U/L (15-37); BILIRUBIN TOTAL 1.1 mg/dL (0.2-1.0); BLOOD UREA NITROGEN,BUN 9 mg/dL (7-18); CALCIUM 9.1 mg/dL (8.5-10.1); CARBON DIOXIDE,CO2 28 mmol/L (21-32); CHLORIDE,CL 102 mmol/L (100-108); CREATININE 0.8 mg/dL (0.6-1.0); EST CRCL DRUG DOSING (CG) 68.26 mL/min; ESTIMATED GFR 83 mL/min (>60); GLUCOSE RANDOM 117 mg/dL (74-106); POTASSIUM,K 3.7 mmol/L (3.6-5.2); PROTEIN TOTAL,TP 7.9 g/dL (6.4-8.2); SODIUM,NA 141 mmol/L (140-148)
[2023-10-04] MEDS: Lactated Ringers 1,000 ML IV SCH (07:50)
[2023-10-04 10:19] VITALS: BP 138/83; PULSE 82
== END 2023-10-04 10:20 | disposition home or self-care (01) ==
LOC: JP.SDS 06:56
PROVIDERS: ATTEND Student in an Organized Health Care Education/Training Program
DX: Z12.11 Encounter for screening for malignant neoplasm of colon (principal); D12.3 Benign neoplasm of transverse colon; D12.4 Benign neoplasm of descending colon; K63.5 Polyp of colon; K57.30 Diverticulosis of large intestine without perforation or abscess without bleeding
CPT/HCPCS: 36415; 45380; 80053; 85027; 85610; 88305; J2250; J2405; J2704; J3010; J7120